=== PATIENT | female | born 1955 | race African-American/Black ===

== ENCOUNTER → 2020-09-27 14:09 | Outpatient (BNVA) | payer OTHER, SELFPAY | PROVIDERS: PCP Physician Assistant; Visit Provider Anesthesiology | DX: Z76.89 Persons encountering health services in other specified circumstances (principal) ==

== ENCOUNTER 2020-10-05 14:28 | Outpatient (REF) | payer OTHER, SELFPAY ==
--- NOTE | 2020-10-05 | MR_ITS ---
EXAMINATION: MR LUMBAR SPINE WITHOUT CONTRAST CLINICAL INFORMATION: Bowel and bladder incontinence. Difficulty walking. COMPARISON: Lumbar spine MRI 01/11/2019. TECHNIQUE: MRI of the lumbar spine was obtained using routine sequences without contrast. FINDINGS: There is grade 1 anterolisthesis of L3 on L4 and L4 on L5 that appears to be related to advanced facet degenerative changes at each of these 2 levels. Vertebral body heights are preserved. No acute bone marrow signal changes. There is loss of intervertebral disc height and T2 signal intensity at multiple levels within the mid to lower lumbar spine related to disc degeneration. The tip of the conus medullaris is located at L1-L2. No mass effect on the conus. Visualized distal cord signal intensity is normal. Although only partially included within the [id number] of this examination there are bulging discs causing no more than mild canal stenosis at multiple levels within the lower thoracic spine. At L1-L2 there is an asymmetrically bulging disc to the left. Bilateral facet degenerative change. No canal stenosis. No mass effect on the traversing or foraminal nerve roots. At L2-L3 there is an asymmetrically bulging disc to the left. Bilateral facet degenerative change. Mild canal stenosis. No mass effect on the traversing or foraminal nerve roots. At L3-L4 there is a central protrusion superimposed upon a pseudodisc bulge. Advanced bilateral facet degenerative change. Severe canal stenosis. Moderate compression of the right L3 foraminal nerve root and mild compression of left L3 foraminal nerve root. At L4-L5 there is a small central protrusion superimposed upon a pseudodisc bulge. Advanced bilateral facet degenerative change. Moderate canal stenosis. Symmetric subarticular zone narrowing causes abutment of both traversing L5 nerve roots. Moderate compression of both L4 foraminal nerve roots. At L5-S1 there is a slightly bulging disc. Bilateral facet degenerative change. No canal stenosis. No mass effect on the traversing or foraminal nerve roots. Limited visualization of the retroperitoneal anatomy reveals no abnormal finding. Psoas and paraspinal muscle groups are symmetric. MR/MR lumbar spine wo con IMPRESSION: There is multilevel degenerative spondylosis of the lumbar spine with grade 1 anterolisthesis of L3 on L4 and L4 on L5 related to advanced facet degenerative changes at these 2 levels. There is severe canal stenosis at L3-L4, moderate canal stenosis at L4-L5, and mild canal stenosis at L2-L3. There are varying degrees of mass effect on the traversing and foraminal segments of the nerve roots as described above.
== END 2020-10-05 14:29 | disposition home or self-care (01) ==
LOC: HO.MRI 14:28
PROVIDERS: Visit Provider Physician Assistant
DX: R32 Unspecified urinary incontinence (principal); R26.2 Difficulty in walking, not elsewhere classified
CPT/HCPCS: 72148